=== PATIENT | female | born 1950 | race Caucasian/White ===

== ENCOUNTER 2024-10-30 11:15 | Outpatient (RCR) | payer MEDICARE, SELFPAY ==
--- NOTE | 2024-10-30 13:11 | OPREHPOC ---
Outpatient Therapy Plan of Care This is a Multidisciplinary Plan of Care that may contain components documented by all disciplines (PT, OT, and ST.) PT Problem 1 PT Problem #1 Knowledge Deficit PT Goal 1 Goal / Goal Update Pt to be independent with HEP Target Visit 4 PT Problem 2 PT Problem #2 Impaired Range of Motion PT Goal 1 Goal / Goal Update Pt to reach 0 degrees R knee passive extension ROM . Pt to obtain full R knee extension ROM for adequate heel strike for proper gait mechanics. Target Visit 10 PT Problem 3 PT Problem #3 Impaired Gait PT Goal 1 Goal / Goal Update Pt to demonstrate maintenance of right lower extremity weight bearing precautions during ambulation with use of right knee immobilizer and axillary crutches. Pt to demonstrate improved weight acceptance on right lower extremity to restore normal gait mechanics for household and community ambulation. Target Visit 10
--- NOTE | 2024-10-30 13:11 | PTOPEVAL1 ---
Assessment and note entered by JT File, PT Evaluation Information Assessment Status Evaluation Diagnosis L patellar fracture from fall ICD-10 Condition Codes (PT) Pain in left knee M25.562 Onset 10/12/24 Subjective Information Pt reports fall on 10/12/24 after slipping on ice and landing on her L knee and shoulder. States the fall knocked her out for a few seconds, did not go to the hospital initially after the fall. Later went to see her doctor and was found to have a L patellar fracture. States the doctor gave her knee extension brace and she has been wearing in at all times including when sleeping, has only removed it to take a seated shower with the knee extended. Before the fall states she was able to move around without any assistance or use of AD. Reports she has stopped taking pain medication at this time. Occasionally sits in the recliner with the brace on and a pillow under her calf for comfort. Reports her goal is to be able to do her regular tasks prior to the fall without pain. Reported Pain Level Pain Score 4: Self Report Assessment PT Clinical Summary Pt is a 73 year old female presenting to outpatient physical therapy following transverse patellar fracture that occurred during a fall from slipping on ice on 10/12/24. Per POC patient is to wear right knee immobilizer at all times and ambulation WBAT with brace donned using axillary crutches. She demonstrates impaired R knee extension ROM and impaired gait mechanics. Skilled physical therapy is indicated to improve on these deficits and return to prior level of function per protocol. Plan of Care Interventions Electrical Stimulation,Gait Training,Hot Pack/Cold Pack,Intermittent Compression Pump,Manual Therapy ,Neuro Re-education,Patient/Caregiver Education, Prosthetic Training,Therapeutic Activities, Therapeutic Exercise PT Services Indicated Yes Treatment Frequency and 1x/week for 4 visits initially, progress to 2x/ Duration week for 6 visits These treatments will address the objective and functional deficits as defined above. The patient will be advanced safely and appropriately in order for the patient to progress towards his/her prior level of function. Additional exercises will be introduced and as well as a comprehensive home exercise program upon discharge, if needed, ?to ensure carryover of functional gains achieved in the clinic. This treatment plan has been reviewed and agreement upon by the patient.
--- NOTE | 2024-12-10 15:04 | OPREHPOC ---
Outpatient Therapy Plan of Care This is a Multidisciplinary Plan of Care that may contain components documented by all disciplines (PT, OT, and ST.) PT Problem 1 PT Problem #1 Knowledge Deficit PT Goal 1 Goal / Goal Update Pt to be independent with HEP Target Visit 4 Progress Met PT Goal 2 Goal / Goal Update Continue to progress Target Visit 14 PT Problem 2 PT Problem #2 Impaired Range of Motion PT Goal 1 Goal / Goal Update Pt to reach 0 degrees R knee passive extension ROM . -met Pt to obtain full R knee extension ROM for adequate heel strike for proper gait mechanics. - met Target Visit 10 Progress Met PT Goal 2 Goal / Goal Update New Goal: Patient to obtain 90 degrees left knee flexion AROM to improve gait. Target Visit 20 PT Problem 3 PT Problem #3 Impaired Gait PT Goal 1 Goal / Goal Update Pt to demonstrate maintenance of right lower extremity weight bearing precautions during ambulation with use of right knee immobilizer and axillary crutches. -met Pt to demonstrate improved weight acceptance on right lower extremity to restore normal gait mechanics for household and community ambulation. -not met Target Visit 10 Progress Partially Met PT Goal 2 Goal / Goal Update continue Target Visit 14
--- NOTE | 2024-12-10 15:05 | PTOPPROG ---
Assessment and note entered by Nelda Brown, PT Evaluation Information Assessment Status Progress Diagnosis L patellar fracture from fall ICD-10 Condition Codes (PT) Pain in left knee M25.562 Onset 10/12/24 Subjective Information Fern De Leon reports her left knee is doing well overall. She is still having limitations with walking and her ability to perform institutional cook, driving, or shopping because she is in the knee brace at all times. Assessment PT Clinical Summary Fern De Leon has completed 10 skilled PT visits for a left patella fracture. She is not having much pain except an occasional sharp pain. She is still in a knee brace and is only allowed to go to 40 degrees of flexion so she is still limited with ADLs, transfers, walking, and performing institutional cook. She has made good progress with left knee AROM within her limitations. She demonstrates impaired gait, impaired balance, decreased left knee flexion ROM, and decreased strength. She will continue to benefit from skilled PT to further address these limitations. She is only allowed to increase flexion ROM by 10 degrees weekly and can not progress to the next phase of her rehab until she is 0-90 degrees with ROM. She will be progressed to 90 degrees by so she will be seen once a week in PT until that time. Plan of Care Interventions Gait Training,Patient/Caregiver Education, Therapeutic Activities,Therapeutic Exercise PT Services Indicated Yes Treatment Frequency and 1 time a week for 4 visits Duration These treatments will address the objective and functional deficits as defined above. The patient will be advanced safely and appropriately in order for the patient to progress towards his/her prior level of function. Additional exercises will be introduced and as well as a comprehensive home exercise program upon discharge, if needed, ?to ensure carryover of functional gains achieved in the clinic. This treatment plan has been reviewed and agreement upon by the patient.
--- NOTE | 2025-01-07 14:27 | OPREHPOC ---
Outpatient Therapy Plan of Care This is a Multidisciplinary Plan of Care that may contain components documented by all disciplines (PT, OT, and ST.) PT Problem 1 PT Problem #1 Knowledge Deficit PT Goal 1 Goal / Goal Update Pt to be independent with HEP Target Visit 4 Progress Met PT Goal 2 Goal / Goal Update Continue to progress Target Visit 14 Progress Met PT Problem 2 PT Problem #2 Impaired Range of Motion PT Goal 1 Goal / Goal Update Pt to reach 0 degrees R knee passive extension ROM . -met Pt to obtain full R knee extension ROM for adequate heel strike for proper gait mechanics. - met Target Visit 10 Progress Met PT Goal 2 Goal / Goal Update New Goal: Patient to obtain 90 degrees left knee flexion AROM to improve gait. Target Visit 20 Progress Not Met PT Problem 3 PT Problem #3 Impaired Gait PT Goal 1 Goal / Goal Update Pt to demonstrate maintenance of right lower extremity weight bearing precautions during ambulation with use of right knee immobilizer and axillary crutches. -met Pt to demonstrate improved weight acceptance on right lower extremity to restore normal gait mechanics for household and community ambulation. -not met Target Visit 10 Progress Partially Met PT Goal 2 Goal / Goal Update continue Target Visit 14
--- NOTE | 2025-01-07 14:27 | PTOPPROG ---
Assessment and note entered by Nelda Brown, PT Evaluation Information Assessment Status Progress Diagnosis L patella fracture ICD-10 Condition Codes (PT) Pain in left knee M25.562 Onset 10/12/24 Subjective Information Fern De Leon reports that her knee feels tight and aches since she has not been able to bend it as much. She uses a crutch when she is ambulating out of the home but just the brace at home. She has had the brace locked in extension when walking . She continues to perform home exercises within her limitations. Assessment PT Clinical Summary Fern De Leon has completed 14 skilled PT visits following a left patella fracture sustained on 01/04 from a fall. She is reporting increased tightness and achiness in the left knee since she has been regressed to 20 degrees flexion after she saw the doctor on 12/31/24. She objectively demonstrates altered gait, decreased left knee AROM, decreased balance, and decreased functional mobility. She went to the digital content specialist recently and was told her fracture is not healed yet and her wants her ambulating with her knee brace locked in extension and to not bend the knee more than 20 degrees. She was educated on new restrictions and exercises to perform at home. She will be put on hold from skilled PT until her next follow up with the physician on 02/12/25. Plan of Care Interventions Gait Training,Therapeutic Activities,Therapeutic Exercise PT Services Indicated No Treatment Frequency and PT on hold until next RTD on 02/12/25 Duration These treatments will address the objective and functional deficits as defined above. The patient will be advanced safely and appropriately in order for the patient to progress towards his/her prior level of function. Additional exercises will be introduced and as well as a comprehensive home exercise program upon discharge, if needed, ?to ensure carryover of functional gains achieved in the clinic. This treatment plan has been reviewed and agreement upon by the patient.
== END 2025-01-28 23:59 | disposition home or self-care (01) ==
LOC: CHSPT 11:15
PROVIDERS: Visit Provider Orthopaedic Surgery
DX: S82.032A Displaced transverse fracture of left patella, initial encounter for closed fracture (principal); W19.XXXA Unspecified fall, initial encounter
CPT/HCPCS: 97110; 97116; 97161; 97530

== ENCOUNTER 2025-05-10 09:49 | Outpatient (RCR) | payer MEDICARE, OTHER, SELFPAY ==
--- NOTE | 2025-05-10 10:52 | PTOPEVAL1 ---
Assessment and note entered by Vahe Garrett Evaluation Information Assessment Status Evaluation ICD-10 Condition Codes (PT) Pain in left knee M25.562 Other ICD-10 Condition Codes ( S82.032G Closed displaced transverse fracture of PT) the left patella Onset 10/12/24 Subjective Information Pt. reports that she initially injured the knee in October after a fall. She states that she participated in rehab shortly after, but was not healing well on x-ray. She was told to hold off on therapy about 3 months ago. She recently went back to the doctor and was told to return to therapy. She reports doctor is still not happy with her healing. She reports that the left knee is very stiff. She has constant swelling. She states that she remains limited in walking due to knee stiffness and pain. She states that she can only walk for about 30 minutes before having to sit due to pain. She states that she enjoys yardwork, but is now limited due to pain and stiffness in the left knee. She reports that her goal for therapy is to be able to improve the mobility in her knee so she can walk better and get in/out of a chair easier. Reported Pain Level Pain Score 2: Self Report Assessment PT Clinical Summary Pt. is a 74 year old female with left knee pain secondary to a patellar fracture. She presents with impaired knee ROM, impaired l.e. strength, impaired gait, pain and functional decline on this date. Continued skilled PT is indicated in order to improve these areas to allow the pt. to be able to return to normal IADL performance without limitation. Plan of Care Interventions Electrical Stimulation,Gait Training,Hot Pack/Cold Pack,Manual Therapy,Neuro Re-education,Patient/ Caregiver Education,Therapeutic Activities, Therapeutic Exercise PT Services Indicated Yes Treatment Frequency and 2x/week x 10 visits. Duration These treatments will address the objective and functional deficits as defined above. The patient will be advanced safely and appropriately in order for the patient to progress towards his/her prior level of function. Additional exercises will be introduced and as well as a comprehensive home exercise program upon discharge, if needed, ?to ensure carryover of functional gains achieved in the clinic. This treatment plan has been reviewed and agreement upon by the patient.
--- NOTE | 2025-05-10 10:53 | OPREHPOC ---
Outpatient Therapy Plan of Care This is a Multidisciplinary Plan of Care that may contain components documented by all disciplines (PT, OT, and ST.) PT Problem 1 PT Problem #1 Knowledge Deficit PT Goal 1 Goal / Goal Update Pt. will be independent with a HEP focusing on knee mobility and l.e. strength. Target Visit 2 PT Problem 2 PT Problem #2 Impaired Range of Motion PT Goal 1 Goal / Goal Update Pt. will achieve 0-125 degrees left knee AROM to allow for improved stair navigation and improved ability to reach to the floor. Target Visit 10 PT Problem 3 PT Problem #3 Impaired Strength PT Goal 1 Goal / Goal Update Pt. will demonstrate 4+/5 gross l.e. strength in all muscle groups to improve standing endurance. Target Visit 8 PT Problem 4 PT Problem #4 Impaired Functional Mobility PT Goal 1 Goal / Goal Update Pt. will complete the 6 minute walk test with a distance of 1200' demonstrating improving gait efficiency Pt. will be able to navigate steps with reciprocal pattern. Pt. will present with less than 30% limitation on the LEFS Pt. will report being able to stand for duration of 1 hour without rest or significant pain.
--- NOTE | 2025-05-28 12:07 | PTOPPROG ---
Assessment and note entered by Nelda Brown, PT Evaluation Information Assessment Status Evaluation ICD-10 Condition Codes (PT) Pain in left knee M25.562 Other ICD-10 Condition Codes ( S82.032G Closed displaced transverse fracture of PT) the left patella Onset 10/12/24 Subjective Information Pt. reports that she initially injured the knee in October after a fall. She states that she participated in rehab shortly after, but was not healing well on x-ray. She was told to hold off on therapy about 3 months ago. She recently went back to the doctor and was told to return to therapy. She reports doctor is still not happy with her healing. She reports that the left knee is very stiff. She has constant swelling. She states that she remains limited in walking due to knee stiffness and pain. She states that she can only walk for about 30 minutes before having to sit due to pain. She states that she enjoys yardwork, but is now limited due to pain and stiffness in the left knee. She reports that her goal for therapy is to be able to improve the mobility in her knee so she can walk better and get in/out of a chair easier. Assessment PT Clinical Summary Pt. is a 74 year old female with left knee pain secondary to a patellar fracture. She presents with impaired knee ROM, impaired l.e. strength, impaired gait, pain and functional decline on this date. Continued skilled PT is indicated in order to improve these areas to allow the pt. to be able to return to normal IADL performance without limitation. Plan of Care Interventions Electrical Stimulation,Gait Training,Hot Pack/Cold Pack,Manual Therapy,Neuro Re-education,Patient/ Caregiver Education,Therapeutic Activities, Therapeutic Exercise PT Services Indicated Yes Treatment Frequency and 2x/week x 10 visits. Duration These treatments will address the objective and functional deficits as defined above. The patient will be advanced safely and appropriately in order for the patient to progress towards his/her prior level of function. Additional exercises will be introduced and as well as a comprehensive home exercise program upon discharge, if needed, ?to ensure carryover of functional gains achieved in the clinic. This treatment plan has been reviewed and agreement upon by the patient.
--- NOTE | 2025-06-15 17:32 | OPREHPOC ---
Outpatient Therapy Plan of Care This is a Multidisciplinary Plan of Care that may contain components documented by all disciplines (PT, OT, and ST.) PT Problem 1 PT Problem #1 Knowledge Deficit PT Goal 1 Goal / Goal Update Pt. will be independent with a HEP focusing on knee mobility and l.e. strength. Target Visit 2 Progress Met PT Goal 2 Goal / Goal Update continue to progress Target Visit 18 PT Problem 2 PT Problem #2 Impaired Range of Motion PT Goal 1 Goal / Goal Update Pt. will achieve 0-125 degrees left knee AROM to allow for improved stair navigation and improved ability to reach to the floor. Target Visit 10 Progress Not Met PT Goal 2 Goal / Goal Update Continue Target Visit 18 PT Problem 3 PT Problem #3 Impaired Strength PT Goal 1 Goal / Goal Update Pt. will demonstrate 4+/5 gross l.e. strength in all muscle groups to improve standing endurance. Target Visit 8 Progress Not Met PT Goal 2 Goal / Goal Update Continue Target Visit 18 PT Problem 4 PT Problem #4 Impaired Functional Mobility PT Goal 1 Goal / Goal Update Pt. will complete the 6 minute walk test with a distance of 1200' demonstrating improving gait efficiency -not met Pt. will be able to navigate steps with reciprocal pattern. -not met Pt. will present with less than 30% limitation on the LEFS. -not met Pt. will report being able to stand for duration of 1 hour without rest or significant pain. -not met PT Goal 2 Goal / Goal Update Continue all goals Target Visit 18
--- NOTE | 2025-06-15 17:32 | PTOPPROG ---
Assessment and note entered by Nelda Brown, PT Evaluation Information Assessment Status Progress ICD-10 Condition Codes (PT) Pain in left knee M25.562 Other ICD-10 Condition Codes ( S82.032G Closed displaced transverse fracture of PT) the left patella Onset 10/12/24 Subjective Information Fern reports her left knee is doing better overall. She notes she is bending better and notes she is getting stronger. She was able to get off the toilet with both legs without her hands for the first time the other day. She continues to have difficulty walking in grass as well as up or down an incline. She notes the knee still feels unstable and swells a lot. Assessment PT Clinical Summary Fern De Leon has completed 10 skilled PT visits for a left patella fracture sustained in October 2024. She has had slow healing and after several months of trying to let it heal on its own, she was given a bone stimulator. She is reporting improvements over the last 5 weeks of PT noting she can get up from chairs and the toilet easier however, she still feels the knee is unstable and she has difficulty walking in grass and up and down inclines. She demonstrates improved left knee ROM achieving 0-105 degrees actively and 109 degrees passively. She also demonstrates improved strength and gait. She does continue to have deficits in AROM for flexion, decreased strength, altered gait, and navigates stairs one at a time. She is progressing toward her goals but has not yet met them. She will continue to benefit from skilled PT to further improve her physical and functional limitations. Plan of Care Interventions Neuro Re-education,Patient/Caregiver Education, Therapeutic Activities,Therapeutic Exercise PT Services Indicated Yes Treatment Frequency and 2 times a week for 8 visits Duration These treatments will address the objective and functional deficits as defined above. The patient will be advanced safely and appropriately in order for the patient to progress towards his/her prior level of function. Additional exercises will be introduced and as well as a comprehensive home exercise program upon discharge, if needed, ?to ensure carryover of functional gains achieved in the clinic. This treatment plan has been reviewed and agreement upon by the patient.
--- NOTE | 2025-07-14 12:01 | OPREHPOC ---
Outpatient Therapy Plan of Care This is a Multidisciplinary Plan of Care that may contain components documented by all disciplines (PT, OT, and ST.) PT Problem 1 PT Problem #1 Knowledge Deficit PT Goal 1 Goal / Goal Update Pt. will be independent with a HEP focusing on knee mobility and l.e. strength. Target Visit 2 Progress Met PT Goal 2 Goal / Goal Update continue to progress Target Visit 18 Progress Met PT Problem 2 PT Problem #2 Impaired Range of Motion PT Goal 1 Goal / Goal Update Pt. will achieve 0-125 degrees left knee AROM to allow for improved stair navigation and improved ability to reach to the floor. Target Visit 10 Progress Not Met PT Goal 2 Goal / Goal Update Continue Target Visit 18 Progress Not Met PT Problem 3 PT Problem #3 Impaired Strength PT Goal 1 Goal / Goal Update Pt. will demonstrate 4+/5 gross l.e. strength in all muscle groups to improve standing endurance. Target Visit 8 Progress Not Met PT Goal 2 Goal / Goal Update Continue Target Visit 18 Progress Met PT Problem 4 PT Problem #4 Impaired Functional Mobility PT Goal 1 Goal / Goal Update Pt. will complete the 6 minute walk test with a distance of 1200' demonstrating improving gait efficiency -nearly met Pt. will be able to navigate steps with reciprocal pattern. -met Pt. will present with less than 30% limitation on the LEFS. -not met Pt. will report being able to stand for duration of 1 hour without rest or significant pain. -not met PT Goal 2 Goal / Goal Update Continue all goals Target Visit 18 Progress Partially Met
--- NOTE | 2025-07-14 12:01 | PTOPDC ---
Assessment and note entered by Jamila Villalpando, PT Evaluation Information Assessment Status Discharge ICD-10 Condition Codes (PT) Pain in left knee M25.562 Other ICD-10 Condition Codes ( S82.032G Closed displaced transverse fracture of PT) the left patella Onset 10/12/24 Subjective Information Fern reports her knee feels pretty good and she doesn't have pain. She has continued performing her home exercises and feels good enough to continue them at home on her own, and she is returning to the doctor in October for a follow up x-ray. Reported Pain Level Pain Score 0: Self Report Assessment PT Clinical Summary Mrs. De Leon has attended 18 skilled PT visits for L knee pain following patellar fracture. She has made progress in her LE strength and has met goals addressing strength and stair climbing, as well as nearly meeting her goal for 6MWT distance. She has not met her goals for L knee AROM or prolonged standing, but she has made improvement in her knee ROM as well as being able to stand for 30 minutes at a time. She has remained independent in her HEP and feels confident to continue these on her own to make additional progress, with a plan to follow up with her doctor in October for an additional x-ray of the knee. Plan of Care PT Services Indicated No
== END 2025-07-14 20:00 | disposition home or self-care (01) ==
LOC: CHSPT 09:49
PROVIDERS: Visit Provider Orthopaedic Surgery
DX: S82.032 Displaced transverse fracture of left patella (principal)
CPT/HCPCS: 97110; 97112; 97150; 97161; 97530; 97750